=== PATIENT | male | born 1970 | race Caucasian/White ===

== ENCOUNTER 2020-01-25 00:14 | Inpatient (IN) | payer OTHER ==
[~2020-01-25] VITALS: Ht 193 cm; Wt 154.3 kg
[2020-01-25 01:34] LABS: Basophils # (auto) 0.1 10 ^3/uL (0-0.2); Basophils % (auto) 0.3 % (0.0-2.0); Eosinophils # (auto) 0.1 10 ^3/uL (0-0.8); Eosinophils % (auto) 0.2 % (0.0-7.0); Hematocrit 44.1 % (41.0-53.0); Lymphocytes % (auto) 11.3 % (10.0-50.0); Mean Corpuscular Hemoglobin 30.1 pg (28.0-32.0); Mean Corpuscular Volume 88.5 fL (80.0-100.0); Monocytes # (auto) 1.8 10 ^3/uL (0-1.3); Monocytes % (auto) 6.5 % (0.0-12.0); Neutrophils % (auto) 81.7 % (37.0-80.0); Platelet Count (auto) 254 10^3/uL (140-450); Red Blood Cells 4.98 10^6/uL (4.5-5.90); Red Cell Distribution Width 13.4 % (11.8-14.3); White Blood Cell 26.9 10^3/uL (4.4-10.8)
[2020-01-25 01:51] LABS: Albumin 3.1 g/dL (3.4-5.0); BUN/Creatinine Ratio 20.5; Calcium 9.1 mg/dL (8.5-10.1); Potassium 3.2 mmol/L (3.5-5.1)
[2020-01-25 01:54] LABS: Bilirubin, Total 3.1 mg/dL (0.2-1.0); Total Protein 7.5 g/dL (6.4-8.2)
[2020-01-25] MEDS ORDERED: ACETAMINOPHEN 500 MG TAB PO ONE (04:00)
[2020-01-25 04:33] LABS: Urine Bacteria NONE SEEN /hpf (None Seen); Urine Blood 2+ /uL (Negative); Urine Specific Gravity 1.015 (1.001-1.035); Urine WBC 16 /hpf (0 - 3)
[2020-01-25] MEDS ORDERED: KETOROLAC TROMETH 30 MG/ML 1ML VIAL IV ONE (05:15)
[2020-01-25] MEDS ORDERED: SODIUM CHLORIDE 0.9% 500 ML IVB ONE (08:30)
[2020-01-25] MEDS ORDERED: POTASSIUM EFFERVESENT TAB 25 MEQ PO ONE ×2 (08:30→15:45)
[2020-01-25] MEDS ORDERED: cefTRIAXone 1GM/50ML D5W 50 ML IV ONE (08:30)
[2020-01-25] MEDS ORDERED: SODIUM CHLORIDE 0.9% 1,000 ML IV ONE (08:30)
[2020-01-25] MEDS ORDERED: IOHEXOL 300 MG/ML 100ML BOTTLE IJ ONE (09:01)
[2020-01-25] MEDS ORDERED: MORPHINE SULF INJ 2 MG/ML SYRINGE 1ML IV PRN ×2 (12:15)
[2020-01-25] MEDS ORDERED: ONDANSETRON HCL 4 MG/2 ML VIAL IV PRN (12:15)
[2020-01-25] MEDS ORDERED: NITROGLYCERIN 0.4 MG SL TAB SL PRN (12:15)
[2020-01-25] MEDS ORDERED: VANCOMYCIN PER PHARMACY 0 MG IV SCH (12:15)
[2020-01-25] MEDS ORDERED: DEXTROSE (50%) 50ML SYRG IV PRN (12:15)
[2020-01-25] MEDS: SODIUM CHLORIDE 0.9% 1,000 ML IV SCH (12:37)
--- NOTE | 2020-01-25 13:15 | NUR ---
Telemetry admit from ER EDUIN BARRETT admitted to Telemetry unit after SBAR received. Patient oriented to VANESSA BATISTA RN primary RN, unit, room, bed, and unit policies regarding patient care and visiting hours. Patient now on continuous telemetry monitoring, tele box # [id number] and telemetry reading on arrival to unit is sinus rhythm. Patient placed on bedside oxygen, weighed by bedscale and encouraged to call if they need something. All questions and concerns addressed, patient verbalized understanding.
[2020-01-25] MEDS: VANCOMYCIN 1GM/250ML 250 ML IV SCH ×2 (14:15→21:44)
[2020-01-25 14:24] VITALS: BP 160/77
--- NOTE | 2020-01-25 15:40 | NUR ---
paged Nurse practitioner Pietro vogel called regarding potassium lab values. Waiting for call back. Continue care.
[2020-01-25] MEDS ORDERED: LABETALOL HCL 5 MG/ML 4ML SYRINGE IV PRN (15:45)
--- NOTE | 2020-01-25 15:45 | NUR ---
returned call Nurse practioner Pietro Dewitt returned call, updated on patient status and reason for call, orders received and verified. Continue care.
--- NOTE | 2020-01-25 16:00 | NUR ---
INCREASED TEMP TEMP CHECK AT 100.8. PRN TYLENOL TO BE ADMINISTERED AND COOLING MEASURES IN PLACE AT THIS TIME. WILL RE CHECK TEMPERATURE WITHIN THE HOUR.
[2020-01-25] MEDS: ACETAMINOPHEN 500 MG TAB PO PRN (16:14)
[2020-01-25] MEDS: amLODIPine BESYLATE 5 MG TAB PO SCH (16:14)
[2020-01-25] MEDS: ACCU-CHEK COMFORT CURVE STRIP VI SCH ×2 (16:17→21:44)
[2020-01-25] MEDS: InsuLIN REG 1unit/0.01ml Soln (100units/ml) SC SCH ×2 (16:18→21:43)
[2020-01-25 16:57] VITALS: BP 135/81
--- NOTE | 2020-01-25 17:00 | NUR ---
TEMPERATURE RE CHECK TEMPERATURE RE CHECK PERFORMED. TEMPERATURE AT 99.7 DEGREES FAHRENHEIT.
--- NOTE | 2020-01-25 19:30 | NUR ---
Opening Shift Note Assumed care of patient, awake and alert x4. No S/S of distress/SOB or pain. NS infusing to the left hand at 100mls/hr, site is asymptomatic and patent. Call light is within reach, side rails up x2, bed is in the lowest position. Instructed on POC and to call for assist PRN. All questions and concerns answered, will continue to monitor for changes Q1hr and PRN.
--- NOTE | 2020-01-25 19:31 | NUR ---
CLOSING NOTE ENDORSED CARE TO NOC SHIFT RN
[2020-01-25 21:22] VITALS: BP 155/83
--- NOTE | 2020-01-25 21:59 | NUR ---
Paged hospitalist. Patient's temperature is 101.9 degrees orally, cooling measures are in place, no prn medications available.
--- NOTE | 2020-01-25 22:08 | NUR ---
Hospitalist called back Spoke with Anisha ALBERTS, new order received for Tylenol 650 mg q4h for mild pain or temperature greater than 100 degrees Fahrenheit. See eMAR and order history.
[2020-01-25] MEDS ORDERED: ACETAMINOPHEN 325 MG TAB PO PRN (22:15)
--- NOTE | 2020-01-25 22:25 | NUR ---
Spoke with after hours pharmacy spoke with Catherine. Tylenol order is pending due to elevated liver enzymes. Per recommendation clarify with MD or change it for Ibuprofen. Paged hospitalist.
[2020-01-25] MEDS ORDERED: IBUPROFEN 400 MG TAB PO PRN (22:30)
--- NOTE | 2020-01-25 22:33 | NUR ---
Hospitalist called back Spoke with Anisha ALBERTS, orders to cancel Tylenol 650 mg and new order received for 500mg Motrin PO q6h for temperature greater than 100.0 degrees Fahrenheit.
--- NOTE | 2020-01-25 22:42 | NUR ---
Motrin administered, temperature is 100.4 degrees. Cooling measures remain in place, call light is within reach, will reassess.
--- NOTE | 2020-01-25 23:41 | NUR ---
Temperature recheck Oral temp is 99.8 degrees.
[2020-01-26] MEDS: SODIUM CHLORIDE 0.9% 1,000 ML IV SCH ×3 (03:00→18:15)
[2020-01-26 05:28] VITALS: BP 120/84
[2020-01-26] MEDS: VANCOMYCIN 1GM/250ML 250 ML IV SCH ×3 (05:36→19:55)
[2020-01-26] MEDS: InsuLIN REG 1unit/0.01ml Soln (100units/ml) SC SCH ×4 (06:18→23:27)
[2020-01-26] MEDS: ACCU-CHEK COMFORT CURVE STRIP VI SCH ×4 (06:27→23:26)
[2020-01-26 06:40] LABS: Basophils # (auto) 0.1 10 ^3/uL (0-0.2); Basophils % (auto) 0.5 % (0.0-2.0); Eosinophils # (auto) 0.1 10 ^3/uL (0-0.8); Eosinophils % (auto) 0.8 % (0.0-7.0); Hematocrit 41.9 % (41.0-53.0); Hemoglobin 14.5 g/dL (13.5-17.5); Lymphocytes # (auto) 1.6 10 ^3/uL (0.4-5.4); Lymphocytes % (auto) 9.6 % (10.0-50.0); Mean Corpuscular Hemoglobin 30.6 pg (28.0-32.0); Mean Corpuscular Hgb Conc. 34.5 g/dL (32.0-36.0); Mean Corpuscular Volume 88.7 fL (80.0-100.0); Monocytes % (auto) 6.1 % (0.0-12.0); Neutrophils # (auto) 13.4 10 ^3/uL (1.6-8.6); Nucleated Red Blood Cells % 0.1 %; Platelet Count (auto) 207 10^3/uL (140-450); Red Blood Cells 4.72 10^6/uL (4.5-5.90); Red Cell Distribution Width 13.6 % (11.8-14.3); White Blood Cell 16.1 10^3/uL (4.4-10.8)
[2020-01-26 06:58] LABS: Potassium 3.2 mmol/L (3.5-5.1)
[2020-01-26 07:12] LABS: Albumin 2.5 g/dL (3.4-5.0); BUN/Creatinine Ratio 15.9; Bilirubin, Total 1.7 mg/dL (0.2-1.0); Calcium 8.7 mg/dL (8.5-10.1); Total Protein 6.6 g/dL (6.4-8.2)
--- NOTE | 2020-01-26 07:30 | NUR ---
Opening Shift Note Assumed care of patient, awake and alert. No S/S of distress/SOB or pain. Instructed on POC and to call for assist PRN, will continue to monitor for changes Q1hr and PRN. Assisted patient with ADLs. Bed locked in lowest position, HOB elevated at least 30 degrees, call light is within reach and side rails up x 2.
[2020-01-26 09:07] VITALS: BP 128/71
--- NOTE | 2020-01-26 09:07 | NUR ---
INCREASED TEMP TEMP CHECK AT 101.0. PRN TYLENOL TO BE ADMINISTERED AND COOLING MEASURES IN PLACE AT THIS TIME.
[2020-01-26] MEDS: cefTRIAXone 1GM/50ML D5W 50 ML IV SCH (09:35)
[2020-01-26] MEDS: FAMOTIDINE 20 MG TAB PO SCH (09:35)
[2020-01-26] MEDS: amLODIPine BESYLATE 5 MG TAB PO SCH (09:35)
[2020-01-26] MEDS: ACETAMINOPHEN 500 MG TAB PO PRN ×2 (09:36→20:47)
--- NOTE | 2020-01-26 10:30 | NUR ---
TEMPERATURE RE CHECK TEMPERATURE CURRENTLY AT 99.1 DEGREES FAHRENHEIT.
--- NOTE | 2020-01-26 11:05 | NUR ---
Nutrition Consult Pt is a consult for new DM. Provided pt with diabetic information pkt and answered questions. Est energy needs 4358-6917 kcal (11-13 kcal/kg BW 165.5kg) Est protein needs 89-116g (1-1.3g/kg IBW 89kg) Will reassess prn. Addendum: 01/26/20 at [address] Amended: Links added.
--- NOTE | 2020-01-26 11:06 | NUR ---
URINE BACTERIA CULTURE URINE BACTERIA CULTURE COLLECTED AND SENT TO LAB
[2020-01-26] MEDS ORDERED: METF-370 PO (11:32)
[2020-01-26] MEDS ORDERED: LISI40TA11 PO (11:34)
[2020-01-26] MEDS ORDERED: HCTZ25T PO (11:34)
[2020-01-26 12:44] VITALS: BP 133/71
[2020-01-26] MEDS ORDERED: VANCOMYCIN 1GM/250ML 250 ML IV SCH (15:00)
--- NOTE | 2020-01-26 15:46 | NUR ---
ANAIS Called/paged Dr. Woodson called regarding patient's potassium levels. Waiting for call back. Continue care.
--- NOTE | 2020-01-26 15:50 | NUR ---
returned call Dr. Woodson returned call, updated on patient status and reason for call. Continue care.
[2020-01-26] MEDS ORDERED: POTASSIUM CHL 20 Meq TABLET PO ONE (16:00)
[2020-01-26] MEDS ORDERED: DEXTROSE (50%) 50ML SYRG IV PRN (16:00)
[2020-01-26 16:17] VITALS: BP 149/81
--- NOTE | 2020-01-26 19:05 | NUR ---
CLOSING NOTE ENDORSED CARE TO NOC SHIFT RN
--- NOTE | 2020-01-26 19:25 | NUR ---
RECEIVED PATIENT FROM DAY SHIFT RN. PATIENT RESTING IN BED. NO S/S OF DISTRESS NOTED. C/O SORE ON SCROTUM AREA, REDNESS NOTED AROUND PERINEAL AREA AND SCROTUM. PATIENT UNDERSTOOD HE COULD REQUEST PAIN MEDICATION IF HE COULD NOT TOLERATE THE PAIN. POC INSTRUCTED AND ENCOURAGED PATIENT TO CALL FOR MANAGER OF DRILLING IF NEEDED. BED IN LOWEST LOCKED POSITION WITH SIDE RAILS UP X 2. CALL CRABTREE WITHIN REACH. CONTINUE TO MONITOR FOR CHANGES Q1H AND PRN.
--- NOTE | 2020-01-26 20:47 | NUR ---
PATIENT TEMP 100.6, MEDICATED PATIENT ORDERED. CONTINUE TO MONITOR.
--- NOTE | 2020-01-26 21:00 | NUR ---
IV insertion IV access obtained, via clean sterile technique by inserting [22] gauge catheter at [LFA] after [1] attempt(s). IV secured properly. No trauma to site. Patient tolerated well. IV INFILTRATED AND removal IV DC'd with clean sterile technique, catheter fully intact. Pressure dressing applied to site. Patient tolerated well. NOTE:
--- NOTE | 2020-01-26 21:40 | NUR ---
REASSESSED TEMP 99.9, CONTINUE COOLING MEASURE AND ICE PACKS. CONTINUE TO MONITOR.
[2020-01-26 22:25] VITALS: BP 153/85
[2020-01-26] MEDS: INSULIN LANTUS (GLARGINE) 1 /0.01ml (100units/ml) SC SCH (23:26)
--- NOTE | 2020-01-26 23:27 | NUR ---
ACCU-CHECK, BS 269. INSULIN GIVEN ORDERED. CONTINUE TO MONITOR.
--- NOTE | 2020-01-27 01:47 | NUR ---
REASSESSED PATIENT'S TEMP 100.6. ICE PACKS CHANGED, COOLING MEASURE CONTINUED. TYLENOL FOR FEVER NOT DUE FOR NOW, WILL PAGE HOSPITALIST FOR MEDICATION LATER. CONTINUE TO MONITOR.
[2020-01-27] MEDS: VANCOMYCIN 1GM/250ML 250 ML IV SCH ×4 (02:00→19:43)
--- NOTE | 2020-01-27 02:01 | NUR ---
HOSPITALIST Called/paged ARISTEO ROTH called re:PATIENT'S TEMP 100.6, COOLING MEASURE AND ICE PACKS, BUT TYLENOL NOT DUE FOR NOW . Waiting for call back. Continue care.
--- NOTE | 2020-01-27 02:36 | NUR ---
HOSPITALIST returned call NUT FEEDER IRA returned call, updated on patient status and reason for call, orders received. IBUPROFEN 600MG PO ONCE. Continue care.
[2020-01-27] MEDS ORDERED: IBUPROFEN 600 MG TAB PO ONE ×2 (02:45→23:00)
[2020-01-27 05:29] VITALS: BP 129/67
[2020-01-27] MEDS: InsuLIN REG 1unit/0.01ml Soln (100units/ml) SC SCH ×4 (05:59→23:25)
[2020-01-27] MEDS: ACCU-CHEK COMFORT CURVE STRIP VI SCH ×4 (05:59→23:24)
[2020-01-27] MEDS: SODIUM CHLORIDE 0.9% 1,000 ML IV SCH ×2 (05:59→13:55)
--- NOTE | 2020-01-27 06:00 | NUR ---
REASSESSED TEMP 98.4. ACCU-CHECK, BS 207. INSULIN GIVEN ORDERED. CONTINUE TO MONITOR.
[2020-01-27 06:10] LABS: Basophils # (auto) 0.1 10 ^3/uL (0-0.2); Basophils % (auto) 0.5 % (0.0-2.0); Eosinophils # (auto) 0.3 10 ^3/uL (0-0.8); Eosinophils % (auto) 1.9 % (0.0-7.0); Hematocrit 40.5 % (41.0-53.0); Hemoglobin 13.5 g/dL (13.5-17.5); Lymphocytes # (auto) 2.2 10 ^3/uL (0.4-5.4); Lymphocytes % (auto) 13.3 % (10.0-50.0); Mean Corpuscular Hemoglobin 29.7 pg (28.0-32.0); Mean Corpuscular Hgb Conc. 33.2 g/dL (32.0-36.0); Mean Corpuscular Volume 89.4 fL (80.0-100.0); Monocytes % (auto) 6.4 % (0.0-12.0); Neutrophils # (auto) 12.7 10 ^3/uL (1.6-8.6); Neutrophils % (auto) 77.9 % (37.0-80.0); Red Blood Cells 4.53 10^6/uL (4.5-5.90); Red Cell Distribution Width 13.6 % (11.8-14.3); White Blood Cell 16.3 10^3/uL (4.4-10.8)
[2020-01-27 06:11] LABS: Platelet Count (auto) 239 10^3/uL (140-450)
[2020-01-27 06:34] LABS: Potassium 3.2 mmol/L (3.5-5.1)
[2020-01-27 06:58] LABS: BUN/Creatinine Ratio 12.2; Calcium 8.3 mg/dL (8.5-10.1)
--- NOTE | 2020-01-27 07:35 | NUR ---
Opening Shift Note Assumed care of patient, awake and alert. No S/S of distress/SOB. Patient denies pain at this time. Updated on POC and instructed to call for assistance PRN, patient verbalized understanding. Bed locked in lowest position, call light is within reach and side rails up x 2. Will continue to monitor q1hr and PRN for changes.
[2020-01-27 08:56] VITALS: BP 141/74
[2020-01-27] MEDS: amLODIPine BESYLATE 5 MG TAB PO SCH (09:19)
[2020-01-27] MEDS: FAMOTIDINE 20 MG TAB PO SCH (09:19)
[2020-01-27] MEDS: cefTRIAXone 1GM/50ML D5W 50 ML IV SCH (09:19)
[2020-01-27] MEDS: HYDROcodone-ACET 5/325MG TAB PO PRN (11:27)
[2020-01-27] MEDS ORDERED: POTASSIUM CHL 20 Meq TABLET PO ONE (11:30)
[2020-01-27] MEDS ORDERED: diphenhdrAMINE HCL 25 MG CAP PO ONE (12:00)
[2020-01-27 12:41] VITALS: BP 159/89
[2020-01-27 16:57] VITALS: BP 134/80
--- NOTE | 2020-01-27 17:10 | NUR ---
INCREASED TEMP TEMP CHECK AT 101.4. PRN TYLENOL TO BE ADMINISTERED AND COOLING MEASURES IN PLACE AT THIS TIME. WILL RE CHECK TEMPERATURE WITHIN THE HOUR.
[2020-01-27] MEDS: ACETAMINOPHEN 500 MG TAB PO PRN ×2 (17:12→23:25)
--- NOTE | 2020-01-27 18:15 | NUR ---
TEMPERATURE RECHECKED TEMPERATURE CURRENTLY AT 99.1 DEGREES FAHRENHEIT.
--- NOTE | 2020-01-27 19:26 | NUR ---
RECEIVED PATIENT FROM DAY SHIFT RN. PATIENT LYING ON HIS STOMACH IN BED. NO S/S OF DISTRESS NOTED. C/O SORE ON SCROTAL AREA, REDNESS NOTED AROUND PERINEAL AREA AND SCROTAL AREA. PATIENT UNDERSTOOD HE COULD REQUEST PAIN MEDICATION IF HE COULD NOT TOLERATE THE PAIN. POC INSTRUCTED AND ENCOURAGED PATIENT TO CALL FOR EMAIL DESIGNER IF NEEDED. BED IN LOWEST LOCKED POSITION WITH SIDE RAILS UP X 2. CALL CRABTREE WITHIN REACH. CONTINUE TO MONITOR FOR CHANGES Q1H AND PRN.
--- NOTE | 2020-01-27 20:15 | NUR ---
REASSESSED PATIENT TEMP 100.5. PATIENT JUST HAD TYLENOL @ 1712, NOT YET DUE FOR NOW. ICE PACKS APPLIED AND COOLING MEASURE CONTINUED. PATIENT DENIED PAIN AND ANY DISCOMFORT. CONTINUE TO MONITOR.
[2020-01-27 21:58] VITALS: BP 150/67
--- NOTE | 2020-01-27 22:12 | NUR ---
HOSPITALIST Called/paged ARISTEO ROTH called re:REASSESSED PATIENT'S TEMP 100.9. PATIENT IS ON COOLING MEASURE AND ICE PACKS, TYLENOL NOT DUE FOR NOW. Waiting for call back. Continue care.
--- NOTE | 2020-01-27 22:56 | NUR ---
HOSPITALIST returned call SCHOOL TRAFFIC SUPERVISOR IRA returned call, updated on patient status and reason for call, orders received. IBUPROFEN 600MG PO ONCE. Continue care.
[2020-01-27] MEDS: INSULIN LANTUS (GLARGINE) 1 /0.01ml (100units/ml) SC SCH (23:24)
--- NOTE | 2020-01-27 23:25 | NUR ---
PATIENT TEMP 101.4, MEDICATED PATIENT ORDERED. ICE PACKS AND COOLING MEASURE CONTINUED. CONTINUE TO MONITOR.
--- NOTE | 2020-01-28 00:15 | NUR ---
REASSESSED TEMP 98.4. CONTINUE TO MONITOR.
[2020-01-28] MEDS: SODIUM CHLORIDE 0.9% 1,000 ML IV SCH (01:00)
[2020-01-28] MEDS: VANCOMYCIN 1GM/250ML 250 ML IV SCH ×4 (02:00→19:57)
--- NOTE | 2020-01-28 04:07 | NUR ---
PATIENT C/O SINUS PRESSURE AND REQUESTED TO HAVE BENADRYL. MEDICATED PATIENT ORDERED. CONTINUE TO MONITOR.
[2020-01-28 05:00] VITALS: BP 144/77
[2020-01-28] MEDS: ACCU-CHEK COMFORT CURVE STRIP VI SCH ×4 (06:16→23:38)
[2020-01-28] MEDS: InsuLIN REG 1unit/0.01ml Soln (100units/ml) SC SCH ×4 (06:17→23:38)
--- NOTE | 2020-01-28 06:20 | NUR ---
ACCU-CHECK, BS 196. INSULIN GIVEN ORDERED. CONTINUE TO MONITOR.
[2020-01-28 09:00] VITALS: BP 166/88
[2020-01-28] MEDS: FAMOTIDINE 20 MG TAB PO SCH (09:46)
[2020-01-28] MEDS: cefTRIAXone 1GM/50ML D5W 50 ML IV SCH (09:46)
[2020-01-28] MEDS: amLODIPine BESYLATE 5 MG TAB PO SCH (09:47)
--- NOTE | 2020-01-28 10:30 | NUR ---
WOUND CARE NOTE: IN TO SEE PATIENT AT THIS TIME PER WOUND CARE CONSULT REQUEST.CURRENT MADELIN SCORE IS 17. PATIENT CAN SELF TURN/REPOSITION SELF. PATIENT WAS NOTED UPON ADMIT TO HAVE ERYTHEMA, EDEMA, INDURATION TO SCROTUM TO LEFT BUTTOCK. [facility]AG[facility] OF SEPSIS. WOUND PHOTOS TAKEN AT THIS TIME FOR REFERENCE. HE IS NOTED TO HAVE A 16 X 10 CM HARD, INDURATED, AREA FROM SCROTUM UP ALONG LEFT BUTTOCK. NO DRAINAGE NOTED AT THIS TIME, BUT HAS BEEN WEEPING. NO OPEN WOUND NOTED. VERY TENDER UPON PALPATION, PER PATIENT STATEMENT. ADVISED BEDSIDE NURSE TO APPLY ABD PAD, DISPOSABLE UNDERWEAR TO AREA IN CASE WEEPING OCCURS. THERE IS A SURGICAL CONSULT PENDING. RECOMMEND: SKIN/WOUND CARE PLAN, BID/PRN APPLICATION WITH ABD PAD, DISPOSABLE UNDERWEAR, SURGICAL CONSULT, CONTINUED MONITORING BY WOUND CARE TEAM. Addendum: 01/28/20 at 1657 by Rizwana Tovar RN Amended: Links added.
[2020-01-28 10:42] LABS: Basophils # (auto) 0.1 10 ^3/uL (0-0.2); Basophils % (auto) 0.6 % (0.0-2.0); Eosinophils # (auto) 0.3 10 ^3/uL (0-0.8); Eosinophils % (auto) 1.7 % (0.0-7.0); Hematocrit 44.4 % (41.0-53.0); Lymphocytes # (auto) 2.3 10 ^3/uL (0.4-5.4); Lymphocytes % (auto) 12.9 % (10.0-50.0); Mean Corpuscular Hemoglobin 30.1 pg (28.0-32.0); Mean Corpuscular Hgb Conc. 33.8 g/dL (32.0-36.0); Mean Corpuscular Volume 89.2 fL (80.0-100.0); Monocytes # (auto) 1.3 10 ^3/uL (0-1.3); Monocytes % (auto) 7.2 % (0.0-12.0); Neutrophils # (auto) 13.8 10 ^3/uL (1.6-8.6); Neutrophils % (auto) 77.6 % (37.0-80.0); Platelet Count (auto) 305 10^3/uL (140-450); Red Blood Cells 4.98 10^6/uL (4.5-5.90); Red Cell Distribution Width 13.6 % (11.8-14.3); White Blood Cell 17.7 10^3/uL (4.4-10.8)
[2020-01-28] MEDS: HYDROcodone-ACET 5/325MG TAB PO PRN (10:56)
[2020-01-28 10:57] LABS: Potassium 3.8 mmol/L (3.5-5.1)
[2020-01-28 11:02] LABS: BUN/Creatinine Ratio 10.5
[2020-01-28 12:56] VITALS: BP 150/94
[2020-01-28] MEDS ORDERED: FLEET ENEMA(ADULT) 135 ML PR ONE (15:00)
[2020-01-28 16:41] LABS: INR 1.18 (0.9-1.15); Partial Thromboplastin Time 31.1 sec (23.0-31.2)
[2020-01-28 16:42] VITALS: BP 142/82
--- NOTE | 2020-01-28 20:00 | NUR ---
RECEIVED PATIENT FROM DAY SHIFT RN. PATIENT RESTING IN BED. NO S/S OF DISTRESS NOTED. C/O PAIN @ 3/10 ON SCROTUM AREA, REDNESS AND SWELLING NOTED AROUND PERINEAL AREA AND SCROTUM. HOT AND PAIN TO TOUCH. PATIENT UNDERSTOOD HE COULD REQUEST PAIN MEDICATION IF HE COULD NOT TOLERATE THE PAIN. REINFORCED PATIENT NPO NOW. PATIENT WILL HAVE PROCEDURE TOMORROW. PATIENT VERBALIZED UNDERSTANDING. POC INSTRUCTED AND ENCOURAGED PATIENT TO CALL FOR ENVIRONMENTAL TECHNICAL OFFICER IF NEEDED. BED IN LOWEST LOCKED POSITION WITH SIDE RAILS UP X 2. CALL CRABTREE WITHIN REACH. CONTINUE TO MONITOR FOR CHANGES Q1H AND PRN.
[2020-01-28 22:00] VITALS: BP 152/72
--- NOTE | 2020-01-28 22:34 | NUR ---
DRESSING CHANGED ORDERED. CONTINUE TO MONITOR.
[2020-01-28] MEDS: INSULIN LANTUS (GLARGINE) 1 /0.01ml (100units/ml) SC SCH (23:37)
--- NOTE | 2020-01-29 00:02 | NUR ---
ACCU-CHECK, BS 207. INSULIN GIVEN ORDERED. CONTINUE TO MONITOR.
[2020-01-29] MEDS: VANCOMYCIN 1GM/250ML 250 ML IV SCH ×4 (01:57→20:30)
--- NOTE | 2020-01-29 04:01 | NUR ---
PATIENT SLEEPING. NO S/S OF DISTRESS NOTED. CONTINUE CARE
[2020-01-29 05:20] VITALS: BP 153/93
[2020-01-29] MEDS: ACCU-CHEK COMFORT CURVE STRIP VI SCH ×4 (06:01→23:52)
[2020-01-29] MEDS: InsuLIN REG 1unit/0.01ml Soln (100units/ml) SC SCH ×4 (06:02→23:53)
--- NOTE | 2020-01-29 06:02 | NUR ---
ACCU-CHECK, BS 204. INSULIN GIVEN ORDERED. CONTINUE TO MONITOR.
--- NOTE | 2020-01-29 07:25 | NUR ---
Opening Shift Note Assumed care of patient, awake and alert. No S/S of distress/SOB or pain. Instructed on POC and to call for assistance PRN bed is locked and in lowest position , bed rails up x2 , call light with in reach. Will continue to monitor for changes Q1hr and PRN.
[2020-01-29] MEDS: cefTRIAXone 1GM/50ML D5W 50 ML IV SCH (08:30)
[2020-01-29 09:00] VITALS: BP 134/90
--- NOTE | 2020-01-29 09:13 | NUR ---
SPOKE WITH SE ADKINS, COOK RELIEF REGARDING MECHANICAL REPAIR WORKER CONSULT CONSULT CANCELED. HOSPITAL MD NEEDS TO PROVIDE PATIENT WITH PRESCRIPTION SCRIPT FOR DIABETES SUPPLY NEEDS UPON DISCHARGE.
[2020-01-29] MEDS: FAMOTIDINE 20 MG TAB PO SCH (10:35)
[2020-01-29] MEDS: amLODIPine BESYLATE 5 MG TAB PO SCH (10:36)
[2020-01-29] MEDS ORDERED: INSULIN LANTUS (GLARGINE) 1 /0.01ml (100units/ml) SC ONE (11:30)
--- NOTE | 2020-01-29 12:50 | NUR ---
PATIENT OFF UNIT PATIENT DOWN AT PROCEDURE , NO SIGNS AND SYMPTOMS OF DISTRESS.
[2020-01-29] MEDS: ceFAZolin 1GM/50ML 50 ML IV ONE ×2 (12:59→13:18)
[2020-01-29 13:00] VITALS: BP 159/91
[2020-01-29] MEDS ORDERED: NEOSTIGMINE 1 MG/ML INJ (10mg/10ML VIAL) IV ONE (14:02)
[2020-01-29] MEDS ORDERED: GLYCOPYRROLATE 0.2 MG/ML 1ML VIAL IV ONE (14:02)
[2020-01-29] MEDS ORDERED: SUCCINYLCHOLINE CHLORIDE 20 MG/ML 10ML VIAL IV ONE (14:08)
[2020-01-29] MEDS ORDERED: MIDAZOLAM HCL 1MG/1ML-2 ML VIAL ONE (14:12)
[2020-01-29] MEDS ORDERED: fentaNYL CITRATE 5 ML ONE (14:12)
[2020-01-29] MEDS ORDERED: fentaNYL CITRATE 100 MCG/2 ML VL ONE (14:14)
[2020-01-29] MEDS ORDERED: PROPOFOL 10 MG/ML 20 ML IV ONE (14:14)
[2020-01-29] MEDS ORDERED: ROCURONIUM 10MG/ML 10ML VIAL IV ONE (14:26)
[2020-01-29] MEDS ORDERED: fentaNYL CITRATE 100 MCG/2 ML VL IV ONE (15:22)
[2020-01-29] MEDS ORDERED: fentaNYL CITRATE 100 MCG/2 ML VL IV PRN (15:30)
[2020-01-29] MEDS ORDERED: hydrALAZINE HCL 20 MG/ML VL IV PRN (15:30)
[2020-01-29] MEDS ORDERED: ONDANSETRON HCL 4 MG/2 ML VIAL IV PRN (15:30)
[2020-01-29] MEDS ORDERED: ePHEDrine SULFATE 50 MG/ML AMP IV PRN (15:30)
--- NOTE | 2020-01-29 16:00 | NUR ---
PATIENT BACK ON UNIT PATIENT HAS NO SIGNS AND SYMPTOMS OF DISTRESS , BED IS LOCKED AND IN LOWEST POSITION BED RAILS UP X2 , CALL LIGHT WITH IN REACH. WILL CONTINUE TO MONITOR Q1H OR PRN.
--- NOTE | 2020-01-29 16:33 | NUR ---
Nutrition Followup Notes Pt wt is 156.4 kg Pt was awake when rounded this morning. Pt is NPO d/t scheduled medical procedure. Pt stated no complaints or distress. Est energy needs 7692-0466 kcal (11-13 kcal/kg BW 165.5kg) Est protein needs 89-116g (1-1.3g/kg IBW 89kg) Will reassess prn. LABS: GLUC 204 H, A1c 10.9 H, ALB 2.5 L, BILI 1.7 H, AST 62 H, ALT 85 H, ALK PHOS 151 H GI: Pt had 1 BM on 01/28 per RN doc BS: 17 mod risk. Refer to wound assessment report for full details. PES: Obesity r/t caloric intake in excess of needs aeb pt with a BMI of 44.4kg/m2 Malnutrition related to morbid BMI> or equal to 40 Malnutrition related to morbid obesity Yes Comments Will continue to monitor PO status, skin status, pertinent labs and weight trends. Will f/u in 2-3 days. 1) Continue to monitor po intake, labs, skin 2) refer pt to CDE on DC 3) Continue current plan of care
[2020-01-29 17:00] VITALS: BP 99/78
--- NOTE | 2020-01-29 19:10 | NUR ---
Respiratory note: OXYGEN ASSESSMENT. PT ON BEDSIDE CONT. PULSE OX. NO RESPIRATORY DISTRESS NOTED. HR 102, SPO2 96% ON 4L OXYMIZER, RR 18, BS DIMINISHED/CLEAR. WILL CONTINUE TO MONITOR.
--- NOTE | 2020-01-29 20:00 | NUR ---
Opening Shift Note Assumed care of patient, awake and alert x4. Patient denies pain or shortness of breath at this time. No sign/symptoms of distress noted or verbalized at this time. Instructed on plan of care and encouraged patient to call for assistance as needed, patient verbalized understanding. Bed is locked in lowest position, side rails x 2 are up, and call light is within reach.
[2020-01-29 21:57] VITALS: BP 123/93
--- NOTE | 2020-01-29 23:47 | NUR ---
Wound Care Packing removed from left buttock and wound irrigated as ordered by MD. Minimal sanguineous drainage noted. Patient tolerated well.
[2020-01-29] MEDS: INSULIN LANTUS (GLARGINE) 1 /0.01ml (100units/ml) SC SCH (23:52)
[2020-01-30] MEDS: VANCOMYCIN 1GM/250ML 250 ML IV SCH ×4 (01:41→19:55)
[2020-01-30 05:00] VITALS: BP 137/70
--- NOTE | 2020-01-30 06:30 | NUR ---
Irrigated Wound Irrigated wound as ordered by .
[2020-01-30] MEDS: ACCU-CHEK COMFORT CURVE STRIP VI SCH ×4 (06:52→22:52)
[2020-01-30] MEDS: INSULIN LANTUS (GLARGINE) 1 /0.01ml (100units/ml) SC SCH ×2 (06:52→22:53)
[2020-01-30] MEDS: InsuLIN REG 1unit/0.01ml Soln (100units/ml) SC SCH ×4 (07:06→23:21)
[2020-01-30 07:07] LABS: Basophils # (auto) 0.1 10 ^3/uL (0-0.2); Basophils % (auto) 0.9 % (0.0-2.0); Eosinophils # (auto) 0.6 10 ^3/uL (0-0.8); Eosinophils % (auto) 4.6 % (0.0-7.0); Hematocrit 42.3 % (41.0-53.0); Hemoglobin 14.9 g/dL (13.5-17.5); Lymphocytes # (auto) 3.1 10 ^3/uL (0.4-5.4); Lymphocytes % (auto) 24.3 % (10.0-50.0); Mean Corpuscular Hemoglobin 31.6 pg (28.0-32.0); Mean Corpuscular Hgb Conc. 35.3 g/dL (32.0-36.0); Mean Corpuscular Volume 89.6 fL (80.0-100.0); Monocytes # (auto) 1.1 10 ^3/uL (0-1.3); Monocytes % (auto) 8.3 % (0.0-12.0); Neutrophils # (auto) 7.9 10 ^3/uL (1.6-8.6); Neutrophils % (auto) 61.9 % (37.0-80.0); Nucleated Red Blood Cells % 0.1 %; Platelet Count (auto) 360 10^3/uL (140-450); Red Blood Cells 4.72 10^6/uL (4.5-5.90); White Blood Cell 12.7 10^3/uL (4.4-10.8)
--- NOTE | 2020-01-30 07:20 | NUR ---
DECREASED 02 TO 3LPM OXYMIZER AT THIS TIME. Addendum: 01/30/20 at 0859 by Becky Liu RT Amended: Links added.
[2020-01-30 09:00] VITALS: BP 121/67
[2020-01-30 09:40] LABS: Calcium 8.7 mg/dL (8.5-10.1); Potassium 3.5 mmol/L (3.5-5.1)
[2020-01-30 09:46] LABS: Albumin 2.5 g/dL (3.4-5.0); Total Protein 7.2 g/dL (6.4-8.2)
[2020-01-30] MEDS: cefTRIAXone 1GM/50ML D5W 50 ML IV SCH (10:11)
[2020-01-30] MEDS: FAMOTIDINE 20 MG TAB PO SCH (10:11)
[2020-01-30] MEDS: amLODIPine BESYLATE 5 MG TAB PO SCH (10:12)
[2020-01-30 13:00] VITALS: BP 124/64
[2020-01-30 16:10] VITALS: BP 131/73
[2020-01-30 21:00] VITALS: BP 133/56
--- NOTE | 2020-01-30 23:30 | NUR ---
Irrigated Wound Irrigated wound as ordered by .
[2020-01-31] MEDS: VANCOMYCIN 1GM/250ML 250 ML IV SCH ×2 (02:01→08:17)
[2020-01-31 05:00] VITALS: BP 119/71
--- NOTE | 2020-01-31 06:30 | NUR ---
Irrigated Wound Irrigated wound as ordered by .
[2020-01-31] MEDS: ACCU-CHEK COMFORT CURVE STRIP VI SCH ×3 (06:48→17:48)
[2020-01-31] MEDS: INSULIN LANTUS (GLARGINE) 1 /0.01ml (100units/ml) SC SCH ×2 (06:49→21:36)
[2020-01-31] MEDS: InsuLIN REG 1unit/0.01ml Soln (100units/ml) SC SCH ×3 (06:49→17:51)
--- NOTE | 2020-01-31 07:35 | NUR ---
Opening Shift Note Assumed care of patient from noc shift rn, awake and alert x4. Patient denies pain, no SOB or distress reported. Instructed on plan of care and encouraged patient to call for assistance as needed, patient verbalized understanding. Bed is locked in lowest position, side rails x 2 are up, and call light is within reach.
[2020-01-31 08:00] VITALS: BP 156/90
[2020-01-31 09:00] VITALS: BP 156/90
[2020-01-31] MEDS: cefTRIAXone 1GM/50ML D5W 50 ML IV SCH (09:24)
[2020-01-31] MEDS: FAMOTIDINE 20 MG TAB PO SCH (09:25)
[2020-01-31] MEDS: amLODIPine BESYLATE 5 MG TAB PO SCH (09:25)
--- NOTE | 2020-01-31 10:40 | NUR ---
Dr. Woodson at bedside, discussed plan of care Per MD, she is awaiting final wound culture for discharge planning.
--- NOTE | 2020-01-31 11:22 | NUR ---
Spoke to [facility] staff regarding updated wound culture result. Made MD aware that per [facility], updated wound culture will be tomorrow.
--- NOTE | 2020-01-31 11:32 | NUR ---
Nutrition Followup Notes WT: 154.8 kg Pt was with RN by bedside cleaning wounds. pt s/p sx for his wounds no distress noted currently on clear liq diet with adequate Po of 1005 x 4 per RN doc. Est energy needs 3416-5809 kcal (11-13 kcal/kg BW 165.5kg), Est protein needs 89-116g (1-1.3g/kg IBW 89kg). Will reassess prn. LABS: GLU 154 H ALB 2.5 L GI: Pt had 1 BM on 01/28 per RN doc BS: 22 low risk. Refer to wound assessment report for full details. PES: Obesity r/t caloric intake in excess of needs aeb pt with a BMI of 44.4kg/m2 Comments: Will continue to monitor PO status, skin status, pertinent labs and weight trends. Will f/u in 2-3 days. 1) advance diet as medically feasible. 2) consider MVI/C bid for wounds. 2) refer pt to CDE on DC. 3) Continue current plan of care
[2020-01-31 13:00] VITALS: BP 144/80
--- NOTE | 2020-01-31 14:24 | NUR ---
I called [facility] Director Commercial Sales Ninfa [phone] ext [phone] regarding home health for wound care. Per Ninfa, the home health order has to go through [facility] (phone number [phone]). I faxed home health/wound care order to [facility] [phone].
--- NOTE | 2020-01-31 15:40 | NUR ---
irrigated wound, dressing changed per MD's order
--- NOTE | 2020-01-31 15:43 | NUR ---
[phone]they received order but need to know the diagnosis code, ordering doctor's contact information/NPI number and patient's updated address. I re-faxed home health order to [facility]-they said it can take up to 24-48 hours to process the request-I called Dr. Woodson and let her know that home health wouldn't be set up until Monday.
[2020-01-31 17:00] VITALS: BP 148/95
--- NOTE | 2020-01-31 20:25 | NUR ---
open note assumed care of pt. upon entering room pt awake and alert. pt on room air no distress observed or verbalized. pt denies any pain. pt oriented to this nurse and updated on plan of care. pt has dressing to left buttock clean dry intact. pt bed locked, low and 2x rails up. call light in reach. this nurse to round q1hr and prn. pt encouraged to call as needed.
[2020-01-31 21:00] VITALS: BP 167/94
[2020-02-01] MEDS: ACCU-CHEK COMFORT CURVE STRIP VI SCH ×4 (00:43→17:51)
[2020-02-01] MEDS: InsuLIN REG 1unit/0.01ml Soln (100units/ml) SC SCH ×4 (00:48→17:52)
[2020-02-01 05:00] VITALS: BP 133/75
[2020-02-01] MEDS: INSULIN LANTUS (GLARGINE) 1 /0.01ml (100units/ml) SC SCH ×2 (06:07→21:53)
--- NOTE | 2020-02-01 07:34 | NUR ---
Opening Shift Note Assumed care of patient, Patient currently resting with even and non-labored respirations. No S/S of distress/SOB or pain. will continue to monitor for changes Q1hr and PRN.
[2020-02-01] MEDS: FAMOTIDINE 20 MG TAB PO SCH (09:13)
[2020-02-01] MEDS: cefTRIAXone 1GM/50ML D5W 50 ML IV SCH (09:13)
[2020-02-01] MEDS: amLODIPine BESYLATE 5 MG TAB PO SCH (09:14)
--- NOTE | 2020-02-01 10:15 | NUR ---
MD ARJUN CAIN INFORMED RN ON POC. ALL QUESTIONS AND CONCERNS ADDRESSED AT THIS TIME
[2020-02-01 11:10] VITALS: BP 137/76
--- NOTE | 2020-02-01 11:52 | NUR ---
PT REQUESTING DISCHARGE INFORMATION PATIENT STATES "I JUST WANT TO GO HOME AND I DO NOT NEED A NURSE TO COME TO THE HOUSE FOR WOUND CARE MY SISTER CAN DO IT BY HERSELF. IF POSSIBLE I WOULD LIKE TO GO HOME SOON THEY KNOW WHAT ANTIBIOTIC I NEED FOR HOME" PATIENT EDUCATED ABOUT IMPORTANCE OF WOUND ASEPSIS AND IN HAVING A MEDICAL PROFESSIONAL ASSESS THE WOUND. PATIENT VERBALIZED UNDERSTANDING AND DOES NOT WANT THE HOME HEALTH IF "I CAN GO HOME EARLIER AND HAVE MY SISTER CHANGE MY DRESSING" RN WILL NOTIFY MD OF PATIENTS WISHES
--- NOTE | 2020-02-01 11:52 | NUR ---
CALL PLACED TO [facility] RE: PENDING CULTURE AND SENSITIVITY. PER JUNIOR MANUFACTURING ENGINEER THEY ARE STILL WORKING ON IT AND IT IS NOT YET FINISHED.
--- NOTE | 2020-02-01 12:40 | NUR ---
assessment Patient is a 49 year old male who is alert and oriented. Patients cognitive abilities are intact. Prior to admission patient lived home with his sister and functioned independently. Patient informed me he is able to care for his own ADLs. Per patient he will return home to his prior living arrangements post discharge and his sister Cheli will transport him home. Patient informed me his PCP is DR Todd. Patient will need home health wound care. Gabrielle case filler is working on home health. I informed patient he has a right to speak to a social science research assistant regarding all care. I informed patient he has a right to participate in any and all discharge planning. Patient does not have a POA and advanced directive. I have offered patient information on POA and advanced directives. I informed the patient the advantages and benefits of having an Advanced Directive. Patient verbalized understanding and agreed to discharge plan. Addendum: 02/01/20 at 1303 by Jennifer GONZALEZ Amended: Links added.
[2020-02-01 13:00] VITALS: BP 118/80
[2020-02-01 17:00] VITALS: BP 142/78
--- NOTE | 2020-02-01 19:03 | NUR ---
Opening Shift Note Assumed care of patient from NAVEEN Haas. Patient is awake and alert with no S/S of distress/SOB or pain. Call light within reach, HOB semi fowlers, bed in lowest locked position x2 side rails. Instructed on POC and to call for assist PRN, will continue to monitor for changes Q1hr and PRN.
[2020-02-01 22:00] VITALS: BP 140/79
--- NOTE | 2020-02-01 22:00 | NUR ---
Elevated BP RN was made aware of elevated BP 163/90. RN rechecked BP of 140/79
[2020-02-01 22:02] VITALS: BP 163/90
[2020-02-02] MEDS: ACCU-CHEK COMFORT CURVE STRIP VI SCH ×2 (00:09→06:34)
[2020-02-02] MEDS: InsuLIN REG 1unit/0.01ml Soln (100units/ml) SC SCH ×2 (00:15→06:00)
--- NOTE | 2020-02-02 00:31 | NUR ---
Performed wound care Performed wound care per MD orders. Patient tolerated intervention well with no s/s of distress or pain noted. Will continue to monitor.
[2020-02-02 05:00] VITALS: BP 126/74
[2020-02-02] MEDS: INSULIN LANTUS (GLARGINE) 1 /0.01ml (100units/ml) SC SCH (06:46)
[2020-02-02] MEDS: amLODIPine BESYLATE 5 MG TAB PO SCH (08:48)
[2020-02-02] MEDS: FAMOTIDINE 20 MG TAB PO SCH (08:48)
[2020-02-02] MEDS: cefTRIAXone 1GM/50ML D5W 50 ML IV SCH (08:48)
[2020-02-02 09:00] VITALS: BP 147/79
[2020-02-02 09:38] VITALS: BP 147/79
--- NOTE | 2020-02-02 11:57 | NUR ---
Discharge instructions given as ordered. Encourage to follow up with PMD as instructed. All questions and concerns addressed. Patient verbalized understanding. Medication reconciliation form completed and copy given to patient. IV removed with catheter intact, pressure dressing applied. Wound Care photos taken. Telemetry unit returned to ICU. Patient taken to vehicle via wheelchair with all personal belongings, accompanied by staff and family member. No distress noted at time of departure.
--- NOTE | 2020-02-03 11:22 | NUR ---
I received a message from [facility] letting me know that [facility] (formerly [facility]) has accepted the patient. I called [facility] [phone] and spoke with Trinidad, she confirmed that they did accept patient and they will send a nurse to see him tomorrow.
--- NOTE | 2020-02-03 13:37 | NUR ---
I received a message from Trinidad at [facility] letting me know that patient is refusing their services.
== END 2020-02-02 11:57 | disposition home health service (06) | DRG 872 ==
LOC: ER 00:15 → TELE 00:16 → TELE-WESTW 13:51 → TELE 01-31 09:52 → TELE-WESTW 01-31 09:53
PROVIDERS: ADMIT Nurse Practitioner Acute Care; ATTEND Internal Medicine Nephrology
PROC: 0D9Q3ZZ Drainage of Anus, Percutaneous Approach (ICD-10-PCS; principal; 2020-01-29 14:02)
DX: A41.9 Sepsis, unspecified organism (principal); L02.214 Cutaneous abscess of groin; L02.215 Cutaneous abscess of perineum; L03.311 Cellulitis of abdominal wall; L03.315 Cellulitis of perineum; N13.2 Hydronephrosis with renal and ureteral calculous obstruction; B95.1 Streptococcus, group B, as the cause of diseases classified elsewhere; E11.9 Type 2 diabetes mellitus without complications; E66.01 Morbid (severe) obesity due to excess calories; E87.6 Hypokalemia; I10 Essential (primary) hypertension; L89.309 Pressure ulcer of unspecified buttock, unspecified stage; Z79.84 Long term (current) use of oral hypoglycemic drugs; Z91.19 Patient's noncompliance with other medical treatment and regimen; N49.2 Inflammatory disorders of scrotum
CPT/HCPCS: 36415; 71045; 71046; 74177; 76870; 80048; 80053; 80061; 80202; 81001; 82962; 83036; 83605; 83735; 85025; 85610; 85730; 87040; 87070; 87075; 87076; 87086; 87205; 93005; 94762; 96361; 96365; 96375; G0378; J0330; J0690; J0696; J1815; J1885; J2250; J2704; J3490

== ENCOUNTER 2020-02-04 08:43 | Inpatient (IN) | payer OTHER ==
[~2020-02-04] VITALS: Ht 190.5 cm; Wt 152.1 kg
[~2020-02-04 08:43] MED LIST: HCTZ25T PO; LISI40TA11 PO; METF-370 PO
[2020-02-04] MEDS ORDERED: IOHEXOL 300 MG/ML 100ML BOTTLE IJ ONE (11:57)
[2020-02-04 12:00] LABS: Basophils # (auto) 0.2 10 ^3/uL (0-0.2); Eosinophils # (auto) 0.2 10 ^3/uL (0-0.8); Eosinophils % (auto) 0.9 % (0.0-7.0); Hematocrit 45.3 % (41.0-53.0); Hemoglobin 14.9 g/dL (13.5-17.5); Lymphocytes # (auto) 3.5 10 ^3/uL (0.4-5.4); Lymphocytes % (auto) 15.8 % (10.0-50.0); Mean Corpuscular Hemoglobin 29.5 pg (28.0-32.0); Mean Corpuscular Hgb Conc. 32.9 g/dL (32.0-36.0); Mean Corpuscular Volume 89.7 fL (80.0-100.0); Monocytes # (auto) 1.4 10 ^3/uL (0-1.3); Monocytes % (auto) 6.1 % (0.0-12.0); Neutrophils # (auto) 17.1 10 ^3/uL (1.6-8.6); Neutrophils % (auto) 76.2 % (37.0-80.0); Nucleated Red Blood Cells % 0.1 %; Platelet Count (auto) 436 10^3/uL (140-450); Red Blood Cells 5.05 10^6/uL (4.5-5.90); Red Cell Distribution Width 13.7 % (11.8-14.3); White Blood Cell 22.4 10^3/uL (4.4-10.8)
[2020-02-04 12:20] LABS: Albumin 2.9 g/dL (3.4-5.0); Potassium 4.2 mmol/L (3.5-5.1)
[2020-02-04 12:24] LABS: BUN/Creatinine Ratio 11.3; Bilirubin, Total 1.1 mg/dL (0.2-1.0); Total Protein 7.9 g/dL (6.4-8.2)
[2020-02-04] MEDS ORDERED: cefTRIAXone 1GM/50ML D5W 50 ML IV ONE (13:15)
[2020-02-04] MEDS ORDERED: MORPHINE SULF INJ 2 MG/ML SYRINGE 1ML IV PRN ×3 (13:30→15:45)
[2020-02-04] MEDS ORDERED: NITROGLYCERIN 0.4 MG SL TAB SL PRN ×2 (13:30→15:45)
[2020-02-04] MEDS ORDERED: metroNIDAZOLE 500MG/100ML 100 ML IV ONE (13:30)
[2020-02-04] MEDS ORDERED: SODIUM CHLORIDE 0.9% 1,000 ML IV ONE (14:15)
[2020-02-04] MEDS ORDERED: DEXTROSE (50%) 50ML SYRG IV PRN (15:45)
[2020-02-04] MEDS ORDERED: DOCUSATE SOD 100 MG CAP PO PRN (15:45)
[2020-02-04] MEDS ORDERED: LORazepam 0.5 MG TAB PO PRN (15:45)
[2020-02-04] MEDS ORDERED: ALUM & MAG HYDROX-SIMETH LIQ(MAALOX) 30 ML PO PRN (15:45)
[2020-02-04] MEDS ORDERED: ONDANSETRON HCL 4 MG/2 ML VIAL IV PRN (15:45)
[2020-02-04] MEDS: ACCU-CHEK COMFORT CURVE STRIP VI SCH ×2 (16:08→21:40)
[2020-02-04] MEDS: InsuLIN REG 1unit/0.01ml Soln (100units/ml) SC SCH ×2 (16:09→21:40)
[2020-02-04] MEDS: SODIUM CHLORIDE 0.9% 1,000 ML IV SCH (16:10)
[2020-02-04] MEDS ORDERED: hydrALAZINE HCL 25 MG TAB PO PRN (16:15)
--- NOTE | 2020-02-04 17:21 | NUR ---
patient arrived, no report received from ER.
--- NOTE | 2020-02-04 17:31 | NUR ---
report received from ER.
--- NOTE | 2020-02-04 18:10 | NUR ---
Patient insisted that I change dressing now, dressing changed, red buttocks is red, warm to touch, wound is a surgical wound with well approximated edges, open, and draining serous fluid at this time. Wound culture taken at this time as well, as it is unknown if ER did wound culture.
[2020-02-04] MEDS ORDERED: AMPI500C8 PO (19:22)
[2020-02-04 20:08] LABS: Cholesterol 181 mg/dL (< 200); HDL Cholesterol 30 mg/dL (40-59); LDL Cholesterol 126 mg/dL (< 100); Triglycerides 177 mg/dL (< 150)
[2020-02-04] MEDS: metroNIDAZOLE 500MG/100ML 100 ML IV SCH (21:40)
[2020-02-04] MEDS: ATORVASTATIN 20 MG TAB PO SCH (21:40)
[2020-02-04 22:00] VITALS: BP 90/50
[2020-02-05 04:45] LABS: Urine Amorphous Crystal FEW /hpf (None Seen); Urine Bacteria FEW /hpf (None Seen); Urine Blood Negative /uL (Negative); Urine WBC 5 /hpf (0 - 3)
[2020-02-05 05:00] VITALS: BP 95/49
[2020-02-05 05:07] LABS: Amphetamine Screen, Urine NEGATIVE (NEGATIVE); Barbiturate Scree,Urine NEGATIVE (NEGATIVE); Benzodiazephine Screen, Urine NEGATIVE (NEGATIVE); Cannabinoid Screen, Urine NEGATIVE (NEGATIVE); Cocaine Screen, Urine NEGATIVE (NEGATIVE); Opiate Scree,Urine NEGATIVE (NEGATIVE); Phencyclidine Screen, Urine NEGATIVE (NEGATIVE)
[2020-02-05] MEDS: metroNIDAZOLE 500MG/100ML 100 ML IV SCH ×3 (05:30→21:51)
[2020-02-05] MEDS: ACCU-CHEK COMFORT CURVE STRIP VI SCH ×4 (05:31→22:27)
[2020-02-05] MEDS: InsuLIN REG 1unit/0.01ml Soln (100units/ml) SC SCH ×4 (05:43→22:32)
--- NOTE | 2020-02-05 07:00 | NUR ---
OPENING SHIFT NOTE RECEIVED REPORT ON THE PATIENT. AWAKE LYING IN BED. PATIENT SHOWS NO SIGNS OF DISTRESS AT THIS TIME. PATIENT IS DEMANDING THAT I CHANGE THE DRESSING ON HIS WOUND. BED IN LOWEST POSITION, SIDE RAILS UP X2, AND THE CALL LIGHT IS WITHIN REACH.
[2020-02-05 09:00] VITALS: BP 103/53
[2020-02-05] MEDS: cefTRIAXone 1GM/50ML D5W 50 ML IV SCH (09:42)
[2020-02-05] MEDS: LISINOPRIL 10 MG TAB PO SCH (09:42)
[2020-02-05] MEDS: SODIUM CHLORIDE 0.9% 1,000 ML IV SCH (09:42)
[2020-02-05] MEDS: ASPirin 81 mg TAB PO SCH (09:42)
--- NOTE | 2020-02-05 09:44 | NUR ---
WOUND CARE DONE ON THE PATIENT.
--- NOTE | 2020-02-05 10:55 | NUR ---
WOUND CARE NOTE: WOUND CONSULT ORDERED FOR PATIENT RECENTLY READMITTED TO [facility] WITH DIAGNOSIS OF ABSCESS, PERIANAL. CURRENT MADELIN SCORE IS 23. PATIENT IS FULLY AMBULATORY. PATIENT UNDERWENT I&D ABSCESS APPROXIMATELY ONE WEEK AGO. PATIENT DC'D HOME AND STATES HE TOOK HIS PO ANTIBIOTICS. WOUND CONTINUES TO DRAIN IN INCREASING AMOUNTS WITH MODERATE AMOUNTS OF PURULENT DRAINAGE. HE RETURNED TO THE ER. PATIENT HAS A SURGICAL CONSULT PENDING, WOUND CULTURE IS ALSO PENDING. CLEANSED WOUND WITH WOUND CLEANSER, PATTED DRY WITH STERILE GAUZE. APPLIED ABD PAD TO WOUND. SECURED WITH PAPER TAPE. RECOMMEND: QID DRESSING CHANGE WITH ABD PADS, DISPOSABLE UNDERWEAR, SKIN/WOUND CARE PLAN. WILL DEFER ALL OTHER WOUND RECOMMENDATIONS TO DR. KAUFFMAN AT THIS POINT. WOUND CARE TEAM WILL CONTINUE TO MONITOR. Addendum: 02/05/20 at 1727 by Rizwana Tovar RN Amended: Links added.
--- NOTE | 2020-02-05 11:23 | NUR ---
DR GAN AT BEDSIDE. NO NEW ORDERS RECEIVED.
--- NOTE | 2020-02-05 12:06 | NUR ---
DR KAUFFMAN AT BEDSIDE. NEW ORDERS RECEIVED.
[2020-02-05 12:40] VITALS: BP 113/54
[2020-02-05 16:32] VITALS: BP 146/74
[2020-02-05 16:38] LABS: INR 1.1 (0.9-1.15); Partial Thromboplastin Time 28.6 sec (23.0-31.2)
--- NOTE | 2020-02-05 17:18 | NUR ---
WOUND CARE DONE. PATIENT SHOWS NO SIGNS OF DISTRESS
[2020-02-05] MEDS: ATORVASTATIN 20 MG TAB PO SCH (21:51)
[2020-02-05 22:00] VITALS: BP 143/76
--- NOTE | 2020-02-05 23:00 | NUR ---
WOUND CARE DONE PER MD ORDERS. PATIENT TOLERATED WELL.
[2020-02-06] MEDS: SODIUM CHLORIDE 0.9% 1,000 ML IV SCH ×2 (01:05→17:16)
[2020-02-06 05:00] VITALS: BP 120/60
--- NOTE | 2020-02-06 06:00 | NUR ---
WOUND CARE DONE PER MD ORDERS. PATIENT TOLERATED WELL.
[2020-02-06] MEDS: ACCU-CHEK COMFORT CURVE STRIP VI SCH ×4 (06:58→21:41)
[2020-02-06] MEDS: metroNIDAZOLE 500MG/100ML 100 ML IV SCH ×3 (06:58→21:33)
[2020-02-06] MEDS: InsuLIN REG 1unit/0.01ml Soln (100units/ml) SC SCH ×4 (06:58→21:46)
--- NOTE | 2020-02-06 07:00 | NUR ---
OPENING SHIFT NOTE RECEIVED REPORT ON THE PATIENT. AWAKE LYING IN BED. PATIENT SHOWS NO SIGNS OF DISTRESS AT THIS TIME. DISCUSSED THE PLAN OF CARE WITH THE PATIENT. BED IN LOWEST POSITION, SIDE RAILS UP X2, AND THE CALL LIGHT IS WITHIN REACH.
--- NOTE | 2020-02-06 07:13 | NUR ---
End of Shift Note Endorsed care to dayshift RN. At this time patient has no s/s of distress or SOB.
[2020-02-06] MEDS ORDERED: SUCCINYLCHOLINE CHLORIDE 20 MG/ML 10ML VIAL IV ONE (07:19)
--- NOTE | 2020-02-06 07:30 | NUR ---
PATIENT DOWN TO OR. NO SIGNS OF DISTRESS AT THIS TIME.
[2020-02-06] MEDS ORDERED: fentaNYL CITRATE 5 ML ONE (08:02)
[2020-02-06] MEDS ORDERED: ROCURONIUM 10MG/ML 10ML VIAL IV ONE ×2 (08:04)
[2020-02-06] MEDS ORDERED: PROPOFOL 10 MG/ML 20 ML IV ONE (08:04)
[2020-02-06] MEDS ORDERED: ceFAZolin 1GM VL ONE (08:34)
[2020-02-06] MEDS: cefTRIAXone 1GM/50ML D5W 50 ML IV SCH (10:36)
[2020-02-06] MEDS: ASPirin 81 mg TAB PO SCH (10:37)
[2020-02-06] MEDS: LISINOPRIL 10 MG TAB PO SCH (11:06)
[2020-02-06 13:03] VITALS: BP 114/67
[2020-02-06] MEDS: ACETAMINOPHEN 325 MG TAB PO PRN ×2 (13:50→19:53)
--- NOTE | 2020-02-06 13:50 | NUR ---
patient refused morphine and wants tylenol instead
[2020-02-06 16:36] VITALS: BP 125/80
--- NOTE | 2020-02-06 16:44 | NUR ---
1600 02/06/20 Contacted by [facility] By[facility] who stated if patient is going to need more than 2-3 more days of hospitalization and if condition is stable. Patient will need to be transferred to a [facility] contracted facility. [facility] is a non-contracted facility and patient is incurring a large copay. She also stated if patient is going to need home health to let her know and she will provided contracted home health agencies. I informed nurse ST of the above information. Will f/u in AM with and SS regarding discharge planning.
--- NOTE | 2020-02-06 21:30 | NUR ---
WOUND CARE PER ORDERS. PATIENT TOLERATED WELL. WILL CONTINUE TO MONITOR Q1 AND PRN.
[2020-02-06] MEDS: ATORVASTATIN 20 MG TAB PO SCH (21:34)
[2020-02-06 22:00] VITALS: BP 115/79
[2020-02-07 05:00] VITALS: BP 126/74
--- NOTE | 2020-02-07 06:00 | NUR ---
WOUND CARE PER ORDERS. PATIENT TOLERATED WELL
[2020-02-07] MEDS: ACCU-CHEK COMFORT CURVE STRIP VI SCH ×4 (06:23→22:05)
[2020-02-07] MEDS: metroNIDAZOLE 500MG/100ML 100 ML IV SCH ×3 (06:23→22:28)
[2020-02-07] MEDS: InsuLIN REG 1unit/0.01ml Soln (100units/ml) SC SCH ×4 (06:24→22:06)
--- NOTE | 2020-02-07 07:19 | NUR ---
End of Shift Note Endorsed care to dayshift RN. At this time patient has no s/s of distress or SOB.
--- NOTE | 2020-02-07 07:55 | NUR ---
Opening Note Assumed pt care from NOC RN. Pt is a/ox4 with no s/s of distress or SOb. Pt is currently sitting upright in bed with no complaints at this time. Wound to L perianal area is draining, no adverse s/s noted. Discussed POC with pt, pt verbalized understanding. Safety measures maintained with call light within reach, bed in lowest position and side rails up. Will continue to monitor for changes.
[2020-02-07] MEDS: ASPirin 81 mg TAB PO SCH (08:48)
[2020-02-07] MEDS: cefTRIAXone 1GM/50ML D5W 50 ML IV SCH (08:48)
[2020-02-07] MEDS: ACETAMINOPHEN 325 MG TAB PO PRN ×2 (08:48→20:24)
[2020-02-07] MEDS: LISINOPRIL 10 MG TAB PO SCH (08:48)
[2020-02-07 09:00] VITALS: BP 144/77
[2020-02-07 09:53] LABS: Basophils # (auto) 0.1 10 ^3/uL (0-0.2); Eosinophils # (auto) 0.2 10 ^3/uL (0-0.8); Eosinophils % (auto) 3.5 % (0.0-7.0); Hematocrit 40.1 % (41.0-53.0); Hemoglobin 13.5 g/dL (13.5-17.5); Lymphocytes # (auto) 2.2 10 ^3/uL (0.4-5.4); Lymphocytes % (auto) 31.7 % (10.0-50.0); Mean Corpuscular Hemoglobin 30.2 pg (28.0-32.0); Mean Corpuscular Hgb Conc. 33.7 g/dL (32.0-36.0); Mean Corpuscular Volume 89.6 fL (80.0-100.0); Monocytes # (auto) 0.4 10 ^3/uL (0-1.3); Monocytes % (auto) 5.7 % (0.0-12.0); Neutrophils % (auto) 58.1 % (37.0-80.0); Nucleated Red Blood Cells % 0.1 %; Platelet Count (auto) 387 10^3/uL (140-450); Red Blood Cells 4.47 10^6/uL (4.5-5.90); Red Cell Distribution Width 13.1 % (11.8-14.3); White Blood Cell 6.8 10^3/uL (4.4-10.8)
[2020-02-07] MEDS: SODIUM CHLORIDE 0.9% 1,000 ML IV SCH (10:25)
[2020-02-07] MEDS ORDERED: ASPirin 325 MG TAB ONE (11:30)
[2020-02-07] MEDS ORDERED: CLOPIDOGREL 300 MG TAB ONE (11:30)
[2020-02-07 13:00] VITALS: BP 135/73
--- NOTE | 2020-02-07 15:24 | NUR ---
Nutrition Assessment Notes Please refer to link for full assessment notes. Est Energy needs: [id number] kcals (11-13 kcal/kgBW) Est Protein needs: 107-134 gms/day (1.2-1.5 gm/kgIBW of 89 kg) Will continue to monitor and reassess prn. Addendum: 02/07/20 at [address] Amended: Links added.
[2020-02-07 16:41] VITALS: BP 139/91
--- NOTE | 2020-02-07 20:30 | NUR ---
open note assumed care of pt. upon entering room pt awake, alert and on room air. pt oriented to this nurse and updated on plan of care. pt dressing on buttocks changed per MD order. pt tolerated well. pt bed locked, low and 2x rails up. call light in reach, this nurse to round q1hr and prn. pt encouraged to call as needed.
[2020-02-07 22:00] VITALS: BP 131/80
[2020-02-07] MEDS: ATORVASTATIN 20 MG TAB PO SCH (22:28)
[2020-02-08] MEDS: SODIUM CHLORIDE 0.9% 1,000 ML IV SCH (03:38)
[2020-02-08 05:00] VITALS: BP 128/69
[2020-02-08] MEDS: InsuLIN REG 1unit/0.01ml Soln (100units/ml) SC SCH ×2 (06:07→11:18)
[2020-02-08] MEDS: metroNIDAZOLE 500MG/100ML 100 ML IV SCH (06:11)
[2020-02-08] MEDS: ACCU-CHEK COMFORT CURVE STRIP VI SCH ×2 (06:11→11:10)
--- NOTE | 2020-02-08 06:13 | NUR ---
wound cleansed and dressing changed per md order. pt tolerated well.
--- NOTE | 2020-02-08 07:17 | NUR ---
OPENING SHIFT NOTE Assumed care of patient from night club manager RN. Patient is alert and oriented x4, no signs of distress noted, patient denies pain. He was updated on the plan of care and verbalized understanding. Dressing to the left buttock is clean dry and intact. Bed is locked, in the lowest position, side rails up x2 and call light is in reach. He was encouraged to call for assistance as needed.
[2020-02-08 08:37] VITALS: BP 130/79
[2020-02-08] MEDS: cefTRIAXone 1GM/50ML D5W 50 ML IV SCH (08:42)
[2020-02-08] MEDS: ASPirin 81 mg TAB PO SCH (09:36)
[2020-02-08] MEDS: LISINOPRIL 10 MG TAB PO SCH (09:36)
--- NOTE | 2020-02-08 10:26 | NUR ---
CALLED MICROBIOLOGY for results on wound culture, Per tech finalized results will be ready tomorrow. MD made aware. Per MD patient can be discharged today.
--- NOTE | 2020-02-08 11:40 | NUR ---
WOUND CARE AND DC PICTURES Pictures of wound taken per DC protocol and associated paperwork completed. Wound care completed as ordered, patient tolerated well.
[2020-02-08 12:00] VITALS: BP 130/79
--- NOTE | 2020-02-08 12:42 | NUR ---
DISCHARGE Discharge instructions given as ordered. Encourage to follow up with PMD as instructed. All questions and concerns addressed. Patient verbalized understanding. Medication reconciliation form completed and copy given to patient. IV removed with catheter intact, pressure dressing applied, Telemetry unit returned to ICU. Patient refused wheelchair and ambulated with a steady gait with all personal belongings, accompanied by staff. No distress noted at time of departure.
== END 2020-02-08 12:42 | disposition home or self-care (01) | DRG 854 ==
LOC: ER 08:43 → TELE 08:44 → TELE-WESTW 17:18
PROVIDERS: ADMIT Hospitalist; ATTEND Family Medicine
PROC: 0D9Q00Z Drainage of Anus with Drainage Device, Open Approach (ICD-10-PCS; principal; 2020-02-08)
DX: A41.9 Sepsis, unspecified organism (principal); E87.1 Hypo-osmolality and hyponatremia; E44.0 Moderate protein-calorie malnutrition; K61.0 Anal abscess; L02.31 Cutaneous abscess of buttock; L03.315 Cellulitis of perineum; L02.419 Cutaneous abscess of limb, unspecified; Z68.41 Body mass index [BMI] 40.0-44.9, adult; E66.01 Morbid (severe) obesity due to excess calories; E78.5 Hyperlipidemia, unspecified; I10 Essential (primary) hypertension; N20.0 Calculus of kidney; Z79.899 Other long term (current) drug therapy; Z82.49 Family history of ischemic heart disease and other diseases of the circulatory system; Z83.3 Family history of diabetes mellitus; Z91.19 Patient's noncompliance with other medical treatment and regimen; Z91.81 History of falling
CPT/HCPCS: 36415; 71045; 72193; 80053; 80061; 80307; 81001; 82962; 83036; 84484; 85025; 85610; 85730; 87040; 87081; 87086; 87205; A4565; G0378; J0330; J0690; J0696; J1815; J2704; J3490